=== PATIENT | female | born 2000 | race Caucasian/White ===

== ENCOUNTER 2022-08-01 13:36 | Outpatient (CLI) | payer BC ==
[2022-08-01 14:44] LABS: BHCG - Serum Negative (NEGATIVE); Pregs Control Background? CLEAR/WHITE (CLR/WHITE); Pregs Control Bar Appear? YES (CONTROL BAR)
== END 2022-08-01 13:37 | disposition home or self-care (01) ==
LOC: LABBT 13:36
PROVIDERS: ATTEND Otolaryngology Plastic Surgery within the Head & Neck
DX: Z01.812 Encounter for preprocedural laboratory examination (principal); J35.3 Hypertrophy of tonsils with hypertrophy of adenoids; J35.01 Chronic tonsillitis; G47.30 Sleep apnea, unspecified
CPT/HCPCS: 84703; 85014

== ENCOUNTER 2022-08-02 06:44 | Day surgery (SDC) | payer BC ==
[2022-08-01 14:06] VITALS: BMI 22.8
[2022-08-02] MEDS ORDERED: Midazolam HCl 2 mg/2 ml Vial ONE ×2 (06:59→07:35)
[2022-08-02] MEDS ORDERED: fentaNYL PF 100 MCG/2 ML SYRINGE ONE (06:59)
[2022-08-02] MEDS ORDERED: HYDROmorphone 0.5 MG/0.5 ML SYRINGE ONE (07:00)
[2022-08-02] MEDS ORDERED: Ferric Subsulfate (ASTRINGYN) 8 GM VIAL ONE (08:06)
[2022-08-02] MEDS ORDERED: Dexamethasone 20 MG/5 ML VIAL ONE (08:42)
[2022-08-02] MEDS ORDERED: Ondansetron PF 4 MG/2 ML Vial ONE (08:42)
[2022-08-02] MEDS ORDERED: PROPOFOL 200 MG/20 ML VIAL ONE (08:42)
[2022-08-02] MEDS ORDERED: Lidocaine 1% PF 5 ML VIAL ONE (08:42)
[2022-08-02] MEDS ORDERED: Fentanyl 250 MCG/5 ML VIAL ONE (09:35)
[2022-08-02] MEDS ORDERED: Hydrocodone-Acetamin 15 ML UDCUP ONE (10:25)
== END 2022-08-02 11:26 | disposition home or self-care (01) ==
LOC: SDC 06:44
PROVIDERS: ATTEND Otolaryngology Plastic Surgery within the Head & Neck
PROC: 0CTPXZZ Resection of Tonsils, External Approach (ICD-10-PCS; principal; 2022-08-02)
PROC: 0CTQXZZ Resection of Adenoids, External Approach (ICD-10-PCS; principal; 2022-08-02)
DX: J35.03 Chronic tonsillitis and adenoiditis (principal); G47.33 Obstructive sleep apnea (adult) (pediatric); E78.5 Hyperlipidemia, unspecified; Z86.16 Personal history of COVID-19; Z79.3 Long term (current) use of hormonal contraceptives
CPT/HCPCS: 88304; J1100; J1170; J2250; J2405; J2704; J3010